=== PATIENT | female | born 1935 | race Caucasian/White ===

== ENCOUNTER 2016-02-19 00:48 | Inpatient (IN) | payer MEDICARE, MEDICAID ==
[~2016-02-19] VITALS: Ht 170.1 cm; Wt 83.6 kg
[2016-02-19] VITALS (9 sets, daily range): BP systolic 97–156; BP diastolic 50–84
--- NOTE | ~2016-02-19 | PR ---
[place], [place] PROGRESS NOTE NAME: JOHN ZHANG [facility] #: [id number] UNIT #: [id number] ROOM: [facility] DOCTOR: REYES BABIN MD,MICHELLE BIRTHDATE: [birth year] DOS: 02/22/2016 PULMONARY CRITICAL CARE EVALUATION AND MANAGEMENT HISTORY OF PRESENT ILLNESS: The patient has been noted comfortable at the present time, was noted without any distress. The patient was attempted on CPAP mode of mechanical ventilation yesterday but did not tolerate. She was switched back to assist control mode of mechanical ventilation. Arterial blood gases was also noted significant increased CO2 retention and hypercapnia. Currently, the patient has been getting IV Diprivan for the patient, sedated and remains on assist control mode of mechanical ventilation. There were no hemodynamic or respiratory complications noted as well. PHYSICAL EXAMINATION: VITAL SIGNS: For the patient which has been recorded shows the temperature of the patient noted as normal. The respiratory rate of the patient recorded as 12, heart rate 78, the blood pressure 152/68. The intake for this patient was recorded as intake of 3700 mL, output 1350 mL. Pulse oxygen saturation of the patient was recorded as 99%, 40% oxygen. HEENT: The patient remained orally intubated. NECK: Supple. HEAD: Atraumatic. CARDIOVASCULAR SYSTEM: S1, S2 audible. LUNGS: Was noted with moderate decreased breath sounds in the lungs bilaterally. ABDOMEN: Was noted as soft, nontender. Bowel sounds are present. EXTREMITIES: Showed no edema, clubbing, or cyanosis. LABORATORY DATA: Labs on the patient, endotracheal aspirate showed normal anupama isolation. Arterial blood gas assist control mode this morning, pH of 7.37, pCO2 46, pO2 125 with 40% oxygen. Arterial blood gas just on CPAP trial, pH of 7.26, pCO2 64, pO2 98.0. The chest x-ray of the patient that was done for the patient yesterday for the patient was noted without any acute abnormalities. CMP today, BUN 36, creatinine 1.20, glucose 129, sodium 148. Albumin 2.3. IMPRESSION: 1. The patient with persistent acute hypercapnic and hypoxic respiratory failure. 2. Acute aspiration pneumonia of the left lower lobe. 3. Mild acute kidney injury as well. 4. Metabolic alkalosis secondary to hypercarbia. 5. Moderate protein calorie malnutritional status. PLAN OF TREATMENT: Discontinuation of the Diprivan completely. Use of the Haldol p.r.n. 5 mg every 4 hours for any agitation. Resuming the mechanical ventilation with the trial of a CPAP of 5, pressure support of 10 for a couple of hours. If tolerates, his arterial blood gases will be done for the assessment of possibility of consideration of liberation of mechanical ventilator. In the meantime, continue to maximize other medical management therapy, plan of care, usual care. Supportive plan of management. [facility] [place], [place] PROGRESS NOTE NAME: JOHN ZHANG UNIT #: [id number] ROOM: [facility] DOCTOR: REYES BABIN MD,MICHELLE BIRTHDATE: [birth year] nutritional support for the patient has been provided and the patient has been tolerating current level of feeding at 60 mL of Pulmocare per hour. Continue other ventilator bundle management. Total time of pulmonary critical care evaluation and management was 35 minutes. MICHELLE CHAMBERS MD CM:PNANDRZEJ [id number] MICHELLE BABIN MD 02/23/16 0533 interface
--- NOTE | ~2016-02-19 | PR ---
[place], [place] PROGRESS NOTE NAME: JOHN ZHANG [facility] #: [id number] UNIT #: [id number] ROOM: [facility] DOCTOR: REYES BABIN MD,MICHELLE BIRTHDATE: [birth year] DOS: 02/24/2016 PULMONARY CRITICAL CARE EVALUATION AND MANAGEMENT SUBJECTIVE: The patient was seen and examined on 02/24/2016. She has been continued mechanical ventilator. The patient has been failing the trials of the weaning in the last couple of days. She has been continued mechanical ventilation, assist-controlled mode of mechanical ventilation. The Diprivan use has been discontinued. She has been getting intravenous Haldol p.r.n. use. She has not been noted with any hemodynamic instability at the present time. She does open her eyes and noted severe hard of hearing. OBJECTIVE: VITAL SIGNS: Shows a normal temperature, respiratory rate 22-17, heart rate 83, blood pressure 146/64. Intake is 3600 mL, output 1075 mL. Pulse oxygen saturation on 30% oxygen 96% saturation recorded. HEENT: No new change. NECK: Supple. CARDIOVASCULAR: S1, S2 is audible. LUNGS: The patient noted moderate decreased breath sounds for the patient. ABDOMEN: Soft, flat, nontender, bowel sounds present. EXTREMITIES: Show no edema, clubbing or cyanosis. LABORATORY DATA: BMP this morning, glucose 143, BUN 40, creatinine was normal. Remaining labs were normal. CBC of the patient this morning, WBC count 7.4, hemoglobin 11.2, hematocrit 36.1 and platelet count 131,000. IMPRESSION: 1. The patient with acute hypoxic and hypercapnic respiratory failure result of acute bacterial pneumonia from aspiration, which has been currently treated. 2. Muscle deconditioning and poor muscle mass and elderly status with difficulty weaning from the mechanical ventilator. 3. Mild azotemia for this patient was noted at present time. 4. Mild anemia for the patient remains stable as well. 5. History of essential hypertension. 6. Acute exacerbation of chronic obstructive pulmonary disease. 7. Azotemia. The patient also elaborates azotemia as a result of corticosteroids. PLAN OF TREATMENT: The patient has been started on CPAP of 5, pressure support of 10, initially, tidal volume noted about 200-250 mL with the respiratory rate 20-22. The patient pressure support was changed to 15 and the PEEP was increased to 8, resulting a tidal volume about 350-400 mL. The respiratory rate was recorded as 18. The current BiPAP setting will be continued if tolerated by the patient for the next couple of hours and arterial blood gases will be done. In the meantime, we continue antibiotics, bronchodilators, and oxygen supplementation. Continue nutritional support for the patient, which seemed to be well tolerated without any residual problems. Continue DVT prophylaxis, GI prophylaxis. Maximize nutritional status support. Consultation has been ordered for the patient's long-term acute care facility for further continued [place], [place] PROGRESS NOTE NAME: JOHN ZHANG UNIT #: [id number] ROOM: [facility] DOCTOR: REYES BABIN MD,MICHELLE BIRTHDATE: [birth year] medical management of ongoing acute medical illnesses. Total time pulmonary critical evaluation and management was 33 minutes. MICHELLE CHAMBERS MD CM:IZABEL [id number] MICHELLE BABIN MD 02/24/16 2313 interface
--- NOTE | ~2016-02-19 | CON ---
[place], [place] REPORT OF CONSULTATION NAME: JOHN ZHANG [facility] #: [id number] UNIT #: [id number] ROOM: [facility] DOCTOR: MICHELLE MARVIN MD BIRTHDATE: [birth year] DOS: 02/20/2016 PULMONARY CRITICAL CARE EVALUATION AND MANAGEMENT NOTE REQUESTED BY: Hospitalist services. REASON FOR CONSULTATION: For assessment of the progressive acute hypoxic respiratory failure requiring intubation and mechanical ventilation. HISTORY OF PRESENT ILLNESS: This is an 80-year-old female who has been admitted to the hospital [facility] the [facility]. She was brought to the hospital by the EMS as the patient has been experiencing increased shortness of breath. Shortness of breath for the patient has been noted gradually worsening. She had not been able to answer the question as the patient arrived in the Emergency Room assessment. The shortness of breath has been described by the nursing staff which occurred for this patient in the morning as per nursing staff. The patient has been admitted to Intensive Care Unit. She has been treated for further medical management. The patient developed progressive acute hypercapnic respiratory failure with further change in mental status and decreased responsiveness. She has been intubated, started on mechanical ventilation for this patient. The patient has been currently receiving mechanical ventilation at the time of the assessment. Sedation has been continued for the patient in the form of Diprivan. She has been noted comfortable without any distress at the time of the assessment. Endotracheal aspirate and vazquez cultures have been ordered for this patient and sent to the laboratory already. She has not been able to give me any history. All the history essentially was obtained for this patient from review of the current documentation, medical records by the physicians and the nursing staff. REVIEW OF SYSTEMS: Review of systems cannot be completed because of the patient's intubation and mechanical ventilatory status. PAST MEDICAL HISTORY: 1. The patient was noted with history of generalized anxiety disorder. 2. History of chronic dementia. 3. History of essential hypertension. 4. Hyperlipidemia. 5. Chronic kidney disease stage 3. 6. History of chronic obstructive pulmonary disease. PAST SURGICAL HISTORY: Described as history of hernia repair, the details were unknown. SOCIAL HISTORY: The patient was noted with past history of tobacco use, unknown quantity or duration at the present time. She has not been reported any history of past alcohol or any illicit drug use. FAMILY HISTORY: Father at the age of 7070 years old from complications of heart problem, coronary artery disease. Mother at the age of 80 plus years old from complications of coronary artery disease as well. [place], [place] REPORT OF CONSULTATION [facility] [id number] UNIT #: [id number] ROOM: [facility] DOCTOR: REYES BABIN MD,MICHELLE BIRTHDATE: [birth year] MEDICATIONS: Medications which has been listed for this patient at the time of admission from the [facility] were recorded as use of Tylenol p.r.n., Norvasc, aspirin 325 mg, Lipitor, Symbicort HFA inhaler, Coreg, vitamin D3, Flonase, Tussin-DM p.r.n., DuoNeb q.6 hours p.r.n. for wheezing, Claritin, lorazepam, prednisone 10 mg daily and Seroquel. DRUG ALLERGIES: REPORTED ALLERGIES TO LIPITOR, NAMENDA, VERSED, PROCARDIA AND VIOXX. PHYSICAL EXAMINATION: GENERAL: An 80-year-old elderly female, currently intubated, on mechanical ventilator. The patient was noted without any distress. Height of 5 feet 7 inches, weight of 184 pounds, BMI 28.8. VITAL SIGNS: Recorded as a normal temperature, respiratory rate of the patient recorded at 18-20, heart rate of 75-83, blood pressure 150/75-152/73. Pulse oxygen saturation was recorded as 98% on current mechanical ventilation. HEENT: Head was atraumatic. Eyes are nonicterus. The patient orally intubated, orogastric tube is in place. NECK: Supple. CARDIOVASCULAR: S1, S2 is audible. LUNGS: Noted generally with decreased breath sounds with expiratory wheezing. Scattered crackles of the lungs were present. ABDOMEN: Soft, flat, nontender. Bowel sounds present. EXTREMITIES: Shows no edema, clubbing or cyanosis. SKIN: Showed no lesions or rashes. MUSCULOSKELETAL: No gross deformities. LABORATORY DATA: On admission, CBC on 02/19/2016 for this patient was noted as normal CBC. BMP of the patient on 02/15/2016, glucose 117, BUN normal, creatinine was normal. CO2 of 34. Troponin was normal. Chest x-ray of the patient which was done on admission on 02/19/2016 in the Emergency Room, one view was taken, it shows small patchy infiltration noted in the left lower lung without any other acute abnormalities, finding of congestive heart failure, gross consolidation, mass lesion or with both nodules. The lactic acid repeated for the patient noted as normal. CBC of the patient which was repeated again was noted normal yesterday in the hospital. The BMP repeated again for the patient yesterday shows glucose of 134, BUN normal, creatinine was normal. CBC this morning shows normal CBC and WBCs. The CMP of the patient which was noted on 02/20/2016 shows BUN of 27, creatinine 1.28, glucose 179, CO2 of 39. Arterial blood gas of the patient on 100% nonrebreather mask, pH of 7.14, pCO2 of 90.6, pO2 of 352 for this patient noted prior to intubation and mechanical ventilation. Second arterial blood gas on 70% oxygen with the initiation of mechanical ventilation, pH of 7.27, pCO2 of 60.5, pO2 of 322 with PEEP of 5, tidal volume 650 mL. Arterial blood gas another was repeated 2 hours later, pH of 7.41, pCO2 of 44, pO2 of 174 with the oxygen decreased at that time to 50%. Endotracheal aspirate Gram stain was noted with many white blood cells with few epithelial cells, rare gram-positive cocci in pairs. Chest x-ray of the patient that was done on 02/20/2016, repeated. The patient was noted with endotracheal tube was noted in appropriate position. Small infiltration of the patient was [place], [place] REPORT OF CONSULTATION [facility] [id number] UNIT #: [id number] ROOM: [facility] DOCTOR: REYES BABIN MD,MICHELLE BIRTHDATE: [birth year] still noted in the left lower lobe. IMPRESSION: 1. The patient has been currently admitted to the hospital with progressive acute hypercapnic and severe hypoxemic respiratory failure, result of acute exacerbation of chronic obstructive pulmonary disease. 2. Small acute aspiration pneumonia in the left lower lobe was also suspected as a patchy infiltration. 3. Change in mental status. 4. History of chronic dementia. 5. Previous history of nicotine abuse, which was not noted active at the present time. 6. Suspected protein-calorie malnutrition at least moderate in severity as well. 7. Metabolic alkalosis secondary to hypercarbia. 8. Other several medical conditions as reported in the past history component. PLAN OF TREATMENT: Ventilator bundle management has been initiated. The patient will be continued on IV Versed p.r.n. use and continue use of the IV Diprivan. Feeding has been started with Pulmocare at 60 mL an hour, initial dose of 20 mL. Bronchodilator will be given every 4 hours. The antibiotics for this patient will be used by the patient empirically with reduction of antibiotic spectrum based on the culture results. Vazquez cultures have been obtained from the patient including blood cultures, urine culture, and the endotracheal aspirate. Other supportive plan of therapy has been continued. Feeding will be started for the patient today. DVT prophylaxis for this patient will be continued. Other usual care and treatment, therapy plan and management. Supportive plan of care. Solu-Medrol for the patient for the management of acute exacerbation of COPD. Further treatment changes will be done based on the progression of the illness. Aspiration pneumonia will continued to be managed with current antibiotics for this patient and the changes to be made for this patient after the available of new culture results in the next 48 hours. Total time for pulmonary critical care evaluation and management was 38 minutes. MICHELLE CHAMBERS MD CM:CONSTR:REPORT OF CONSULTATION 1527 03/04/16 0948 interface
--- NOTE | ~2016-02-19 | PR ---
[place], [place] PROGRESS NOTE NAME: JOHN ZHANG [facility] #: [id number] UNIT #: [id number] ROOM: [facility] DOCTOR: REYES BABIN MD,MICHELLE BIRTHDATE: [birth year] DOS: 02/21/2016 PULMONARY CRITICAL CARE EVALUATION AND MANAGEMENT SUBJECTIVE: The patient remains in Intensive Care Unit with mechanical ventilation continued. Sedation has been continued for the patient with IV Diprivan. With sedation holiday, the patient has been noted to opening her eyes but has dementia, may not follow the vocal commands appropriately. This morning as the patient was seen, she had been re-sedated as well with IV Diprivan. The patient has not been noted with any acute hemodynamic instability or respiratory complications, remains on assist control mode of mechanical ventilation, tolerating the feeding 50 mL an hour of Pulmocare in the last 24 hours. OBJECTIVE: VITAL SIGNS: Showed the temperature noted 100.2 degree Fahrenheit normal temperature, respiratory rate 16-12, heart rate of 91-87, blood pressure 114/54 to 158/71. Intake is 1300 mL/ 1200 mL. The pulse oxygen saturation of the patient recorded 97% on the mechanical ventilator. HEENT: Examination shows head was atraumatic. Eyes nonicterus. NECK: Supple. The patient remains intubated. Gastric tube is in place. CARDIOVASCULAR: S1, S2 audible. LUNGS: The patient was noted with moderate degree of breath sounds in the lungs bilaterally. ABDOMEN: Soft, nontender. Bowel sounds are present. EXTREMITIES: The extremities showed no edema, clubbing or cyanosis. LABORATORY DATA: Arterial blood gas on assist control mode on mechanical ventilation, pH is 7.41, pCO2 of 43, pO2 of 83.1 on 30% oxygen. CMP of the patient of 02/21/2016, this morning, BUN 32, creatinine 1.51, glucose 140, potassium normal, sodium 145. Total protein of 5.6, albumin of 2.6, prealbumin was 15. AST, ALT was normal. CBC this morning, normal WBC count, hemoglobin 10.8, hematocrit 33.4, platelet count was normal. Chest x-ray which was done this morning, endotracheal tube was noticed 6 cm above the mala[place] level. There was no pulmonary infiltration noted. There were no pleural effusions. IMPRESSION: 1. Acute hypercapnic and hypoxic respiratory failure. 2. History of chronic dementia. 3. Somewhat high-riding endotracheal tube. 4. The patient with history of general anxiety disorder. 5. Acute exacerbation of chronic obstructive pulmonary disease as well. 6. Small left lower lobe pneumonia with aspiration. 7. Moderate protein-calorie malnutrition status. PLAN OF TREATMENT: Discontinue the IV propofol. The assessment is started once the patient noted awake. Started the patient CPAP of 5 with pressure support of 10 couple of hours and arterial blood gas should be obtained afterwards. The arterial blood gas noted with adequate ventilatory status. The patient with stable medical status and hemodynamic. The patient might be considered for liberation of mechanical ventilation. Continue current antibiotics. The [place], [place] PROGRESS NOTE NAME: ADAN ZHANGKatie Camarillo UNIT #: [id number] ROOM: [facility] DOCTOR: MICHELLE MARVIN MD BIRTHDATE: [birth year] antibiotic Bactrim to be decreased for the patient based on the final cultures of the blood and endotracheal aspiration. Usual care. Monitor chest x-ray periodical. Usual care and other supportive therapy and plan of management and other treatment plan. Usual care. All other supportive plan of therapy and other care. Total time for pulmonary critical care evaluation and management was 37 minutes. MICHELLE CHAMBERS MD CM:IZABEL [id number] MICHELLE BABIN MD 02/24/16 0359 interface
--- NOTE | ~2016-02-19 | PR ---
[place], [place] PROGRESS NOTE NAME: JOHN ZHANG [facility] #: [id number] UNIT #: [id number] ROOM: [facility] DOCTOR: REYES BABIN MD,MICHELLE BIRTHDATE: [birth year] DOS: 02/23/2016 SUBJECTIVE: She remains on mechanical ventilator. The Diprivan has been discontinued. She was getting intravenous Haldol p.r.n. for any agitation and behavior while on the mechanical ventilator. She was started on CPAP of 5, pressure support of 10 this morning as well after about 40-45 minutes. The patient was noted with significant hypoxia with respiratory distress and was switched back to assist controlled mechanical ventilation. She was noted severe hard of hearing as well. Low-grade fever was noted. Feeding was continued, tolerated. There was no increase. There was no abnormal hemodynamic instability noted. OBJECTIVE: VITAL SIGNS: At this time, temperature 99.6 degrees Fahrenheit to normal temperature, respiratory rate 12-13, heart rate 72-73, blood pressure 154/68-138/80. Intake is 3000, output 2000 mL approximately recorded. Pulse oxygen saturation 35% on mechanical ventilator assist control mode was 98% saturation. HEENT: Examination shows head was atraumatic. Eyes nonicterus. NECK: Supple. CARDIOVASCULAR: S1, S2 audible. LUNGS: Noted without any wheezing or crackles. Breaths are noted essentially moderately decreased bilaterally. ABDOMEN: Soft, nontender. EXTREMITIES: Shows mild edema of the upper and the lower extremities. LABORATORY DATA: The patient's CBC today, hemoglobin 11.4, hematocrit 35.7, WBC count and platelet count were normal. CMP of the patient this morning was noted with 36, BUN and creatinine normal, sodium 149, potassium 5.2, albumin 2.4. The chest x-ray does not show any acute pulmonary infiltration or other new abnormalities. IMPRESSION: 1. The patient with acute hypercapnic and hypoxic respiratory failure. 2. Acute bacterial pneumonia for this patient was also noted, currently treated with antibiotics. 3. Moderate protein-calorie malnutrition. 4. Muscle deconditioning. 5. Difficulty weaning from the mechanical ventilator. Arterial blood gases controlled mode, which was done this morning showed pH of 7.39, pCO2 of 47, pO2 of 84.8. She did not tolerate the CPAP trial consecutively for the past 2 days. PLAN OF TREATMENT: Continue current sedation protocol. Continue weaning attempts with CPAP as tolerated. Continue maximum nutrition support. The antibiotic spectrum could be changed based on the current culture results. Supportive therapy, plan of management as in progress to be continued. Continue ventilator bundle management. Discontinue the IV Zosyn and vancomycin since there has not been isolation of any organism which required use of the current antibiotic. Levaquin should suffice the patient for the management of current acute bacterial pneumonia. Usual care. All other supportive plan of management [place], [place] PROGRESS NOTE [facility]: [id number] UNIT #: [id number] ROOM: [facility] DOCTOR: MICHELLE MARVIN MD BIRTHDATE: [birth year] and treatments. MICHELLE CHAMBERS MD CM:PNTRANS [id number] MICHELLE BABIN MD 02/24/16 0711 interface
[~2016-02-19 00:48] MED LIST: ACETAMINOPHEN325 M2 PO; ARICEPT10 M1 PO; ARICEPT5 M1 PO; ARTHRITIS PAIN650 MG PO; ASPIRIN BUFFER325 MG PO; ATIVAN0.5 MG PO; CALCIUM CARB500 MG PO; CALCIUM CARBON500 M1 PO; CARVEDILOL12.5 MG PO; CLARITIN10 MG PO; COREG6.25 MG PO; CRESTOR10 M1 PO; DELTA D3400 UNIT PO; DOXYCYCLINE100 MG PO; DULCOLAX10 M1 RC; DUONEB 3 MG/3 ML3 M1 INH; FLONASE ALLERG9.9 ML NAS; FLOVENT HFA10.6 GM IH; GUAIFENESIN600 MG PO; HEPARIN SO5000 UNIT1 SQ; HYDROCHLOROTH12.5 M3 PO; HYDROXYZINE HCL25 M1 PO; LEVAQUIN750 M1 PO; LINEZOLID600 MG PO; LIPITOR20 MG PO; MUCINEX1200 M1 PO; NITROGLYCERIN0.4 MG SL; NORVASC2.5 MG PO; OXYCODONE5 M1 PO; PENTOXIFYL XR400 MG PO; PREDNISONE10 MG PO; RISPERDAL0.25 MG PO; SEROQUEL25 MG PO; SINGULAIR10 M1 PO; SYMBICORT1 AE1 INH; THEREMS1 TAB PO; TUSSIN DM 10 M118 M1 PO; TUSSIN100 MG/51 PO; TYLENOL325 M1 PO; VANCOMYCIN HCL1 GM IV; VITAMIN C500 M4 PO; VITAMIN D3400 UNIT PO; ZETIA10 MG PO
[2016-02-19 01:07] LABS: BASO # 0.1 10*3/uL (0.0-0.1); BASO % 0.7 % (0.0-1.0); EOS # 0.1 10*3/uL (0.0-0.4); EOS % 1.5 % (1.0-4.0); HEMATOCRIT 39.4 % (37.0-47.0); HEMOGLOBIN 12.4 g/dl (12.0-16.0); LYMPH # 0.6 10*3/uL (1.3-4.4); LYMPH % 7.2 % (27.0-41.0); MEAN CORPUSCULAR HGB 30.5 pg (27.0-31.0); MEAN CORPUSCULAR HGB CONC 31.5 g/dl (33.0-37.0); MEAN PLATELET VOLUME 10.4 fl (9.6-12.3); MONO % 11.1 % (3.0-9.0); NEUT # 6.8 10*3/uL (2.3-7.9); NEUT % 79.3 % (47.0-73.0); PLATELET COUNT AUTOMATED 161 10*3/uL (130-400); RED BLOOD COUNT 4.06 10*6/uL (4.10-5.10); RED CELL DISTRI WIDTH 13.9 % (0-14.5); WHITE BLOOD COUNT 8.6 10*3/uL (4.8-10.8)
[2016-02-19 01:19] LABS: POTASSIUM 4.2 mmol/L (3.5-5.1)
[2016-02-19] MEDS ORDERED: ASPIRIN325 MG PO (03:29)
[2016-02-19] MEDS ORDERED: CLARITIN10 MG PO (03:34)
[2016-02-19 06:50] LABS: BASO # 0.1 10*3/uL (0.0-0.1); BASO % 0.9 % (0.0-1.0); EOS % 0.3 % (1.0-4.0); LYMPH # 0.4 10*3/uL (1.3-4.4); LYMPH % 6.9 % (27.0-41.0); MEAN CORPUSCULAR HGB 30.3 pg (27.0-31.0); MEAN CORPUSCULAR HGB CONC 31.6 g/dl (33.0-37.0); MEAN PLATELET VOLUME 10.3 fl (9.6-12.3); MONO # 0.1 10*3/uL (0.1-1.0); MONO % 1.9 % (3.0-9.0); NEUT # 5.2 10*3/uL (2.3-7.9); NEUT % 89.7 % (47.0-73.0); PLATELET COUNT AUTOMATED 147 10*3/uL (130-400); RED BLOOD COUNT 3.96 10*6/uL (4.10-5.10); RED CELL DISTRI WIDTH 13.6 % (0-14.5); WHITE BLOOD COUNT 5.8 10*3/uL (4.8-10.8)
[2016-02-19 07:33] LABS: BUN 19 mg/dl (7-24); CARBON DIOXIDE 31 mmol/L (21-32); CHLORIDE 106 mmol/L (98-107); CHOLESTEROL 146 mg/dL (<200); EST GLOM FILT AFRICAN AMERICAN > 60 ml/min; FREE T4 1.32 ng/dl (0.76-1.46); GLUCOSE 134 mg/dL (65-99); HDL CHOLESTEROL 65 mg/dl (40-60); LDL CHOLESTEROL 71 mg/dL (9-159); MAGNESIUM 2.3 mg/dL (1.5-2.1); POTASSIUM 4.5 mmol/L (3.5-5.1); SODIUM 144 mmol/L (136-145); THYROID STIM HORMONE (HS) 0.771 uIU/ml (0.358-4.75); TRIGLYCERIDES 52 mg/dl (<150); VLDL CHOLESTEROL 10 mg/dL (6-40)
[2016-02-19 07:43] LABS: HEMOGLOBIN A1c 5.6 % (4.8-5.6)
[2016-02-19 09:12] LABS: FOLIC ACID 20.32 ng/mL (>5.38)
[2016-02-20] VITALS (12 sets, daily range): BP systolic 131–167; BP diastolic 53–92
[2016-02-20 02:51] LABS: BASO % 0.2 % (0.0-1.0); HEMATOCRIT 39.5 % (37.0-47.0); HEMOGLOBIN 12.3 g/dl (12.0-16.0); IG # 0.1 10*3/uL (0.0-0.1); LYMPH # 0.6 10*3/uL (1.3-4.4); LYMPH % 5.6 % (27.0-41.0); MEAN CORPUSCULAR HGB CONC 31.1 g/dl (33.0-37.0); MEAN PLATELET VOLUME 10.5 fl (9.6-12.3); MONO # 0.6 10*3/uL (0.1-1.0); NEUT # 9.4 10*3/uL (2.3-7.9); NEUT % 87.7 % (47.0-73.0); PLATELET COUNT AUTOMATED 186 10*3/uL (130-400); RED BLOOD COUNT 3.97 10*6/uL (4.10-5.10); RED CELL DISTRI WIDTH 13.8 % (0-14.5); WHITE BLOOD COUNT 10.7 10*3/uL (4.8-10.8)
[2016-02-20 02:52] LABS: MEAN CELL VOLUME 99.5 fl (81.0-99.0)
[2016-02-20 03:08] LABS: ALBUMIN 3.3 gm/dl (3.1-4.5); BILIRUBIN, TOTAL 0.5 mg/dl (0.2-1.0); POTASSIUM 4.5 mmol/L (3.5-5.1); TOTAL PROTEIN 6.8 gm/dL (6.4-8.2)
[2016-02-20 03:27] LABS: ABG BASE EXCESS -1.1 mmol/L (-2.0-2.0); ABG CO2 CONTENT 32.9 mmol/L (23-27); ABG HCO3 30.1 mmol/l (22-26); ABG TEMPERATURE 98.2 F (98.0-99.0)
[2016-02-20 03:31] LABS: ARTERIAL BLOOD GAS PH 7.146 (7.35-7.45)
[2016-02-20 06:14] LABS: ABG BASE EXCESS -0.3 mmol/L (-2.0-2.0); ABG CO2 CONTENT 28.8 mmol/L (23-27); ABG HCO3 26.9 mmol/l (22-26); ABG TEMPERATURE 98.3 F (98.0-99.0); ARTERIAL BLOOD GAS PH 7.27 (7.35-7.45)
[2016-02-20 08:45] LABS: ABG BASE EXCESS 3.1 mmol/L (-2.0-2.0); ABG CO2 CONTENT 29.1 mmol/L (23-27); ABG HCO3 27.8 mmol/l (22-26); ABG TEMPERATURE 97.8 F (98.0-99.0); ARTERIAL BLOOD GAS PH 7.41 (7.35-7.45)
[2016-02-20 15:30] LABS: BILIRUBIN NEGATIVE (NEGATIVE); BLOOD 1+ (NEGATIVE); CLARITY CLEAR (CLEAR); COLOR YELLOW (YELLOW); GLUCOSE NEGATIVE (NEGATIVE); KETONE NEGATIVE (NEGATIVE); LEUKO ESTERASE NEGATIVE (NEGATIVE); NITRITE NEGATIVE (NEGATIVE); PROTEIN NEGATIVE (NEGATIVE); SPECIFIC GRAVITY 1.015 (1.005-1.030); UROBILINOGEN 0.2 E.U./dl (0.2-1.0)
[2016-02-21] VITALS (12 sets, daily range): BP systolic 114–161; BP diastolic 54–83
[2016-02-21 04:43] LABS: ABG BASE EXCESS 3.4 mmol/L (-2.0-2.0); ABG CO2 CONTENT 29.3 mmol/L (23-27); ABG HCO3 27.9 mmol/l (22-26); ARTERIAL BLOOD GAS PH 7.419 (7.35-7.45); ARTERIAL BLOOD GAS PO2 83.1 mmHg (80-90)
[2016-02-21 05:44] LABS: ALBUMIN 2.6 gm/dl (3.1-4.5); BILIRUBIN, TOTAL 0.3 mg/dl (0.2-1.0); MAGNESIUM 2.2 mg/dL (1.5-2.1); PHOSPHOROUS 3.2 mg/dL (2.5-4.9); POTASSIUM 3.9 mmol/L (3.5-5.1); TOTAL PROTEIN 5.6 gm/dL (6.4-8.2); VANCOMYCIN TROUGH 16.7 ug/mL (10-20)
[2016-02-21 06:23] LABS: HEMOGLOBIN 10.8 g/dl (12.0-16.0); LYMPH # 0.3 10*3/uL (1.3-4.4); LYMPH % 4.9 % (27.0-41.0); MEAN CORPUSCULAR HGB 30.9 pg (27.0-31.0); MEAN CORPUSCULAR HGB CONC 32.3 g/dl (33.0-37.0); MEAN PLATELET VOLUME 10.9 fl (9.6-12.3); MONO # 0.5 10*3/uL (0.1-1.0); MONO % 7.1 % (3.0-9.0); NEUT # 5.7 10*3/uL (2.3-7.9); NEUT % 87.7 % (47.0-73.0); PLATELET COUNT AUTOMATED 157 10*3/uL (130-400); RED CELL DISTRI WIDTH 13.8 % (0-14.5); WHITE BLOOD COUNT 6.5 10*3/uL (4.8-10.8)
[2016-02-21 06:27] LABS: HEMATOCRIT 33.4 % (37.0-47.0); MEAN CELL VOLUME 95.4 fl (81.0-99.0)
[2016-02-21 13:49] LABS: ABG BASE EXCESS 0.8 mmol/L (-2.0-2.0); ABG CO2 CONTENT 30.4 mmol/L (23-27); ABG HCO3 28.4 mmol/l (22-26); ARTERIAL BLOOD GAS PH 7.269 (7.35-7.45)
[2016-02-22] VITALS (11 sets, daily range): BP systolic 103–180; BP diastolic 56–100
[2016-02-22 05:06] LABS: ABG BASE EXCESS 1.8 mmol/L (-2.0-2.0); ABG CO2 CONTENT 28.4 mmol/L (23-27); ABG TEMPERATURE 97.9 F (98.0-99.0); ARTERIAL BLOOD GAS PH 7.379 (7.35-7.45)
[2016-02-22 05:55] LABS: HEMOGLOBIN 10.3 g/dl (12.0-16.0); LYMPH # 0.4 10*3/uL (1.3-4.4); LYMPH % 7.1 % (27.0-41.0); MEAN CELL VOLUME 96.8 fl (81.0-99.0); MEAN CORPUSCULAR HGB 30.2 pg (27.0-31.0); MEAN CORPUSCULAR HGB CONC 31.2 g/dl (33.0-37.0); MONO # 0.6 10*3/uL (0.1-1.0); MONO % 10.4 % (3.0-9.0); NEUT # 4.4 10*3/uL (2.3-7.9); NEUT % 81.9 % (47.0-73.0); PLATELET COUNT AUTOMATED 138 10*3/uL (130-400); RED BLOOD COUNT 3.41 10*6/uL (4.10-5.10); RED CELL DISTRI WIDTH 13.9 % (0-14.5); WHITE BLOOD COUNT 5.4 10*3/uL (4.8-10.8)
[2016-02-22 06:27] LABS: ALBUMIN 2.3 gm/dl (3.1-4.5); BILIRUBIN, TOTAL 0.2 mg/dl (0.2-1.0); TOTAL PROTEIN 4.9 gm/dL (6.4-8.2)
[2016-02-22 15:03] LABS: ABG BASE EXCESS 1.5 mmol/L (-2.0-2.0); ABG CO2 CONTENT 30.7 mmol/L (23-27); ABG HCO3 28.8 mmol/l (22-26); ABG TEMPERATURE 98.2 F (98.0-99.0); ARTERIAL BLOOD GAS PH 7.294 (7.35-7.45); ARTERIAL BLOOD GAS PO2 79.4 mmHg (80-90)
[2016-02-23] VITALS: BP 138/70
[2016-02-23 04:00] VITALS: BP 154/68
[2016-02-23 05:13] LABS: ABG BASE EXCESS 3.1 mmol/L (-2.0-2.0); ABG CO2 CONTENT 29.6 mmol/L (23-27); ABG HCO3 28.2 mmol/l (22-26); ABG TEMPERATURE 98.5 F (98.0-99.0); ARTERIAL BLOOD GAS PH 7.392 (7.35-7.45); ARTERIAL BLOOD GAS PO2 84.8 mmHg (80-90)
[2016-02-23 05:58] LABS: HEMATOCRIT 35.7 % (37.0-47.0); HEMOGLOBIN 11.4 g/dl (12.0-16.0); LYMPH # 0.7 10*3/uL (1.3-4.4); LYMPH % 10.5 % (27.0-41.0); MEAN CORPUSCULAR HGB CONC 31.9 g/dl (33.0-37.0); MONO # 0.6 10*3/uL (0.1-1.0); MONO % 9.2 % (3.0-9.0); NEUT # 5.1 10*3/uL (2.3-7.9); NEUT % 79.7 % (47.0-73.0); PLATELET COUNT AUTOMATED 137 10*3/uL (130-400); RED BLOOD COUNT 3.68 10*6/uL (4.10-5.10); WHITE BLOOD COUNT 6.4 10*3/uL (4.8-10.8)
[2016-02-23 06:23] LABS: ALBUMIN 2.4 gm/dl (3.1-4.5); ALKALINE PHOSPHATASE 58 U/L (45-117); BILIRUBIN, TOTAL 0.3 mg/dl (0.2-1.0); BUN 36 mg/dl (7-24); CARBON DIOXIDE 29 mmol/L (21-32); CHLORIDE 110 mmol/L (98-107); EST GLOM FILT AFRICAN AMERICAN > 60 ml/min; GLUCOSE 99 mg/dL (65-99); POTASSIUM 4.1 mmol/L (3.5-5.1); SGOT/AST 25 IU/L (3-35); SGPT/ALT 18 U/L (12-78); SODIUM 149 mmol/L (136-145); TOTAL PROTEIN 5.2 gm/dL (6.4-8.2)
[2016-02-23 08:00] VITALS: BP 138/80
[2016-02-23 12:00] VITALS: BP 102/60
[2016-02-23 16:00] VITALS: BP 118/60
[2016-02-23 20:00] VITALS: BP 150/78
[2016-02-24] VITALS: BP 154/64
[2016-02-24 04:00] VITALS: BP 140/72
[2016-02-24 06:03] LABS: BASO % 0.1 % (0.0-1.0); HEMATOCRIT 36.1 % (37.0-47.0); HEMOGLOBIN 11.2 g/dl (12.0-16.0); IG # 0.1 10*3/uL (0.0-0.1); LYMPH # 0.5 10*3/uL (1.3-4.4); LYMPH % 7.3 % (27.0-41.0); MEAN CORPUSCULAR HGB 30.1 pg (27.0-31.0); MONO # 0.5 10*3/uL (0.1-1.0); MONO % 6.9 % (3.0-9.0); NEUT # 6.2 10*3/uL (2.3-7.9); NEUT % 84.2 % (47.0-73.0); PLATELET COUNT AUTOMATED 131 10*3/uL (130-400); RED BLOOD COUNT 3.72 10*6/uL (4.10-5.10); RED CELL DISTRI WIDTH 13.6 % (0-14.5); WHITE BLOOD COUNT 7.4 10*3/uL (4.8-10.8)
[2016-02-24 06:40] LABS: BUN 40 mg/dl (7-24); CARBON DIOXIDE 30 mmol/L (21-32); CHLORIDE 106 mmol/L (98-107); EST GLOM FILT AFRICAN AMERICAN > 60 ml/min; GLUCOSE 143 mg/dL (65-99); MAGNESIUM 2.6 mg/dL (1.5-2.1); PHOSPHOROUS 3.3 mg/dL (2.5-4.9); POTASSIUM 4.3 mmol/L (3.5-5.1); SODIUM 144 mmol/L (136-145)
[2016-02-24 07:49] LABS: ABG BASE EXCESS 3.5 mmol/L (-2.0-2.0); ABG HCO3 28.6 mmol/l (22-26); ABG TEMPERATURE 98.3 F (98.0-99.0); ARTERIAL BLOOD GAS PH 7.397 (7.35-7.45)
[2016-02-24 08:00] VITALS: BP 146/64
[2016-02-24 11:40] LABS: ABG BASE EXCESS 3.7 mmol/L (-2.0-2.0); ABG CO2 CONTENT 30.7 mmol/L (23-27); ABG HCO3 29.1 mmol/l (22-26); ARTERIAL BLOOD GAS PH 7.378 (7.35-7.45); ARTERIAL BLOOD GAS PO2 76.4 mmHg (80-90)
[2016-02-24 12:00] VITALS: BP 160/60
[2016-02-24 16:00] VITALS: BP 156/60
== END 2016-02-24 19:00 | DRG 207 ==
LOC: ED 00:48 → 5E 02:54 → ICCU 02:54 → EDHOLD 02:54 → 5E 03:05 → ICCU 02-20 02:53
PROVIDERS: Emergency Medicine Emergency Medical Services; Family Medicine; Internal Medicine; Internal Medicine Critical Care Medicine
PROC: 5A1955Z Respiratory Ventilation, Greater than 96 Consecutive Hours (ICD-10-PCS; principal; 2016-02-19)
PROC: 0BH17EZ Insertion of Endotracheal Airway into Trachea, Via Natural or Artificial Opening (ICD-10-PCS; principal; 2016-02-19)
DX: J96.01 Acute respiratory failure with hypoxia (principal); J69.0 Pneumonitis due to inhalation of food and vomit; N17.9 Acute kidney failure, unspecified; E87.3 Alkalosis; I13.0 Hypertensive heart and chronic kidney disease with heart failure and stage 1 through stage 4 chronic kidney disease, or unspecified chronic kidney disease; I50.22 Chronic systolic (congestive) heart failure; J44.0 Chronic obstructive pulmonary disease with (acute) lower respiratory infection; J44.1 Chronic obstructive pulmonary disease with (acute) exacerbation; E44.0 Moderate protein-calorie malnutrition; J96.02 Acute respiratory failure with hypercapnia; J45.909 Unspecified asthma, uncomplicated; N18.3 Chronic kidney disease, stage 3 (moderate); F03.90 Unspecified dementia, unspecified severity, without behavioral disturbance, psychotic disturbance, mood disturbance, and anxiety; E78.5 Hyperlipidemia, unspecified; D64.9 Anemia, unspecified; F41.1 Generalized anxiety disorder; Z79.82 Long term (current) use of aspirin; Z79.51 Long term (current) use of inhaled steroids; Z79.899 Other long term (current) drug therapy; Z87.891 Personal history of nicotine dependence; Z98.890 Other specified postprocedural states; Z88.8 Allergy status to other drugs, medicaments and biological substances; Z91.040 Latex allergy status; Z82.49 Family history of ischemic heart disease and other diseases of the circulatory system

== ENCOUNTER 2016-05-19 07:32 | Inpatient (IN) | payer MEDICARE, MEDICAID ==
[~2016-05-19] VITALS: Ht 170.2 cm; Wt 74.6 kg
[2016-05-19] VITALS (7 sets, daily range): BP systolic 105–137; BP diastolic 50–66
--- NOTE | ~2016-05-19 | CON ---
[place], [place] REPORT OF CONSULTATION [id number] UNIT #: [id number] ROOM: 507 DOCTOR: SAMMI BRYAN MD BIRTHDATE: [birth year] DOS: 05/22/2016 PSYCHIATRIC CONSULT CHIEF COMPLAINT: What's that over there? Go get me that book. SUMMARY OF THE VISIT: The patient is an 80-year-old white female who is a resident of a local long-term care facility. She was brought in to [facility] due to altered mental status including extreme shortness of breath. The patient apparently always had shortness of breath and is on 3-4 liters of oxygen via nasal cannula while at the [facility]. When she presented to the Emergency Room, they found her to be increasingly hypoxic and very confused and disoriented. Since her admission to the medical floor, not only has she been confused and disoriented, but she has been episodically combative with staff and very labile. She was evaluated now to see if any intervention could decrease her mood lability and agitation. PAST MEDICAL HISTORY: Remarkable for asthma, congestive heart failure, chronic kidney disease stage 3, COPD, Alzheimer's dementia, hyperlipidemia, hypertension, normocytic anemia and protein calorie malnutrition. MENTAL STATUS: The patient is alert and oriented to self. She does seem to realize she is in the hospital, but does not know the time. Her responses are short, simple and at times totally nonsensical and she does not always respond to the question asked of her. At times, she drifted off and needed to be frequently redirected to answer questions. She is very confused and she processes slowly. Short term memory is exceedingly poor. DIAGNOSIS: Impulse control disorder, not otherwise specified and Alzheimer's dementia. PLAN: I will discontinue both the Risperdal and the Seroquel and the p.r.n. Xanax in lieu of Depakote 250 mg twice daily and 500 mg at bedtime. It is my hope that the Depakote would decrease her impulsivity and mood lability without necessarily having an antipsychotic on board. I will write for Ativan 1 mg p.o. or IM q. 4 hours as needed for agitation in case she requires some type of p.r.n. intervention and also start her on Exelon patch 4.6 mg daily to try to improve or maintain ADLs, behavior and cognition. Should she improve medically, but still exhibit psychiatric manifestations, she would be an appropriate candidate for transfer to the [facility]. [place], [place] REPORT OF CONSULTATION NAME: [facility] Z[facility]ANG [facility]quise [facility] [id number] UNIT #: [id number] ROOM: 50 DOCTOR: SAMMI BRYAN MD BIRTHDATE: [birth year] SAMMI BRYAN MD CM:CONSTR:REPORT OF CONSULTATION 0846 05/22/16 2208 interface
--- NOTE | ~2016-05-19 | PR ---
[place], [place] PROGRESS NOTE NAME: JOHN ZHANG [facility] #: [id number] UNIT #: [id number] ROOM: 507 DOCTOR: ÁNGEL BIRMINGHAM MD BIRTHDATE: [birth year] DOS: 05/20/2016 SUBJECTIVE: The patient was seen at her bedside today, 05/20/2016, for followup of her dyspnea and abnormal cardiac enzymes. She is an 80-year-old woman who was brought to [facility] on 05/19/2016 for dyspnea. She does have a history of dementia and is a poor historian. She tells me that she never had any chest pain. Initial laboratory studies showed an elevation in troponin. The initial level was 0.8 and serial levels did show a classic rise and fall pattern suggesting an acute myocardial infarction. The electrocardiogram did not show any ST elevations, however, and this was no non-ST elevation myocardial infarction. Peak troponin was 4.9 and is noted to be falling now. The patient's code status is full code; however, when I spoke to her sister who is her power of patent attorney. She told me that she did not want the patient to undergo any advanced cardiac evaluation or management strategies. We did do an echocardiogram on 05/19/2016. The left ventricle was normal in size with mild concentric left ventricular hypertrophy. Overall, systolic function was normal. There was Doppler evidence for stage 1 diastolic relaxation abnormalities. There was moderate aortic stenosis present with mild to moderate mitral insufficiency. PHYSICAL EXAMINATION: VITAL SIGNS: Today, her pulse is 88 and regular, blood pressure is 130/50. She is afebrile. She weighs 74.6 kilograms with a body mass index of 25.8. NECK: Supple. She has no jugular distention. Carotids are full. LUNGS: Respirations are unlabored. Her chest is clear to auscultation and percussion. HEART: Regular rhythm with a grade 2/6 systolic ejection murmur along the left sternal border. There are no diastolic murmurs. The second heart sound is well preserved. ABDOMEN: Soft. EXTREMITIES: Showed no edema. IMPRESSION: 1. Acute non-ST segment elevation myocardial infarction. Echocardiography does not show the location of the injury and overall left ventricular systolic function is normal. 2. History of chronic obstructive pulmonary disease. 3. History of hypertension. 4. Probable widespread vascular disease. The patient had a carotid endarterectomy in the past and has absent pedal pulses. 5. History of hypertension. 6. History of hyperlipidemia. 7. Dementia. 8. History of congestive heart failure and decreased ejection fraction. Current echo shows normal left ventricular systolic function. PLAN: We will continue to treat the patient conservatively. She will be managed with aspirin, statin, beta-blockers, and nitrates as well as [place], [place] PROGRESS NOTE NAME: JOHN ZHANG [facility] #: [id number] UNIT #: [id number] ROOM: [facility] DOCTOR: ÁNGEL BIRMINGHAM MD BIRTHDATE: [birth year] clopidogrel. I had discussed her situation with her sister who was power of patent attorney, and she agrees with this that conservative management is our best option. I thank the hospitalist group for asking our advice regarding her care. ÁNGEL BIRMINGHAM MD CM:PNTRANS [phone] ÁNGEL BIRMINGHAM MD 05/21/16 0328 interface
--- NOTE | ~2016-05-19 | EKG ---
[place], [place] ELECTROCARDIOGRAM REPORT [id number] UNIT #: [id number] ROOM: 507 DOCTOR: ÁNGEL BIRMINGHAM MD BIRTHDATE: [birth year] DOS: 05/19/2016 TIME: 08:01 a.m. FINDINGS: 1. Sinus rhythm at the rate of 93. 2. Low voltage in standard limb leads. 3. Nonspecific intraventricular conduction delay. 4. Probable old inferior wall myocardial infarction. 5. No acute ST changes. 6. Abnormal electrocardiogram. ÁNGEL BIRMINGHAM MD CM:EKGRPT:ELECTROCARDIOGRAM REPORT [phone] ÁNGEL BIRMINGHAM MD
--- NOTE | ~2016-05-19 | CON ---
[place], [place] REPORT OF CONSULTATION NAME: JOHN ZHANG [facility] #: [id number] UNIT #: [id number] ROOM: 507 DOCTOR: ÁNGEL BIRMINGHAM MD BIRTHDATE: [birth year] DOS: 05/19/2016 CARDIOLOGY CONSULTATION The patient was seen. REASON FOR CONSULTATION: Abnormal electrocardiogram and elevated cardiac biomarkers. HISTORY OF PRESENT ILLNESS: The patient is an 80-year-old woman who was brought to [facility] today 05/19/2016 for worsening dyspnea. The patient does have dementia and is a poor historian. When asked, she says that she feels better now then she did, but she cannot tell me how she felt badly. The medical records from the Emergency Room indicated that she had wheezing and dyspnea. The patient denied any chest pain. Her initial laboratory studies did show an elevation in troponin at 0.8. In addition, her electrocardiogram on admission showed evidence for an old inferior wall myocardial infarction, which was seen on a cardiogram dated 02/19/2016. In addition, however, she had T-wave inversions in the inferior leads, which were either more prominent or new when compared to the previous EKG. She was therefore admitted for management of dyspnea and for possible acute non-ST elevation myocardial infarction. PAST MEDICAL HISTORY: Obtained mostly from the patient's records. Her history includes, 1. COPD. 2. Hospitalization, 02/24/2016 with a left lower lobe pneumonia. 3. Dementia. 4. Chronic heart failure. 5. Echocardiogram, 04/30/2015 showed mild left ventricular dilation with mild global hypokinesis and an ejection fraction between 45% and 50%. The patient had mild left ventricular hypertrophy with moderate mitral insufficiency. She also had aortic sclerosis, but no stenosis. 6. Dementia. 7. Chronic kidney disease stage 3. 8. History of essential hypertension. 9. History of cigarette abuse in the past. 10. Anxiety. 11. Hyperlipidemia. 12. The patient has a right neck scar consistent with a right carotid endarterectomy. 13. The patient has a midline abdominal scar, but cannot tell me what surgery she had. REVIEW OF SYSTEMS: The patient denies all symptoms in a 10-system review. She did admit that she felt funny in her chest, but she states that it is better and could not tell me anything more than that. FAMILY HISTORY: Not available. [place], [place] REPORT OF CONSULTATION [id number] UNIT #: [id number] ROOM: 507 DOCTOR: ÁNGEL BIRMINGHAM MD BIRTHDATE: [birth year] SOCIAL HISTORY: The patient is a former smoker. She does not consume alcohol or cigarettes at this time. [facility]. MEDICATIONS: Prior to admission included albuterol by metered dose inhaler 2 puffs q.i.d., Symbicort 2 puffs b.i.d., Flonase nasal inhaler 2 sprays daily, acetaminophen p.r.n., alprazolam 0.25 q. 6 hours p.r.n., amlodipine 10 mg daily, aspirin 325 mg daily, atorvastatin 20 mg daily, carvedilol 6.25 mg b.i.d., vitamin D 400 units b.i.d., furosemide 80 mg p.o. daily, loratadine 10 mg daily, omeprazole 40 mg daily, Zofran 4 mg q. 6 hours p.r.n., potassium 20 mEq b.i.d., Seroquel 25 mg b.i.d. and NovoLog insulin subcutaneously b.i.d. by sliding scale. ALLERGIES: SHE LISTS ALLERGIES TO ATORVASTATIN, LATEX, , MIDAZOLAM, NIFEDIPINE AND ROFECOXIB (VIOXX). PHYSICAL EXAMINATION: GENERAL: The patient is an elderly white female who is awake and alert. She is oriented only to self. VITAL SIGNS: Pulse is 86 and regular, blood pressure is 110/62. She is afebrile and weighs 74.6 kilograms with a body mass index 25.8. HEENT: Head is normocephalic, atraumatic. Extraocular muscles are intact. Sclerae are clear. Pupils are equal, round and react to light. The oral mucosa is moist. Tongue is midline. NECK: Supple. She has a well-healed right carotid endarterectomy scar. The carotids are full without bruits. She had no neck or supraclavicular masses. No thyromegaly. Respirations are unlabored at rest. She does have expiratory prolongation and a few wheezes in the upper lungs anteriorly. Her posterior lungs are fairly clear. She had no rales. There was no presacral edema or chest wall tenderness. CARDIOVASCULAR: Her heart had a regular rhythm. She had a fourth heart sound, but no third heart sound. She had a grade 2/6 systolic murmur along the lower left sternal border without radiation. No diastolic murmurs are present. There is no midsystolic click. There is no precordial heave, lift or thrill. ABDOMEN: Soft and normally active without masses, organomegaly or bruits. EXTREMITIES: Showed 2+ edema of the ankles bilaterally. There was no hair growth on her feet and peripheral pulses were absent in the feet. DIAGNOSTIC DATA: I reviewed her electrocardiogram. It shows sinus rhythm with an old inferior wall myocardial infarction. She does have T-wave inversions in leads 3 and aVF. The inversion in 3 are more prominent than they were in February 2016. The T-wave inversions in aVF are new. No other changes are seen. LABORATORY DATA: Hemoglobin is 11.6, white count 8900, platelet count 239,000. INR 0.9. Sodium 144, potassium 4.3, BUN 25, creatinine 1.47, CK is 68, but MB is elevated at 8.1. Troponin is elevated to 0.801. ProBNP is elevated at 3939. IMPRESSION: 1. Probable acute non-ST elevation myocardial infarction. Since her total CK is normal, this may have occurred several days ago. The patient currently [place], [place] REPORT OF CONSULTATION [facility]: [id number] UNIT #: [id number] ROOM: 507 DOCTOR: ÁNGEL BIRMINGHAM MD BIRTHDATE: [birth year] denies any chest pain. 2. History of chronic obstructive pulmonary disease. 3. History of hypertension. 4. Probable widespread vascular disease. The patient does have a carotid endarterectomy scar and absent pedal pulses, suggesting central vascular and peripheral vascular disease. 5. History of hypertension. 6. History of hyperlipidemia. 7. Dementia. 8. Congestive heart failure with history of decreased ejection fraction. PLAN: For now, we will treat her conservatively. She has already been started on heparin. We will continue aspirin, statins, beta-blockers, nitrates and add clopidogrel. An echocardiogram will be obtained to reassess left ventricular function and wall motion. Given her multiple medical problems and dementia, I would avoid an invasive assessment of her cardiac status at this time, but strive to treat her to maintain good comfort. I thank the hospitalist group for asking our advice regarding her care. ÁNGEL BIRMINGHAM MD CM:CONSTR:REPORT OF CONSULTATION 1132 05/20/16 0116 interface
--- NOTE | ~2016-05-19 | PR ---
[place], [place] PROGRESS NOTE NAME: [facility] [id number] UNIT #: [id number] ROOM: 507 DOCTOR: ÁNGEL BIRMINGHAM MD BIRTHDATE: [birth year] DOS: 05/21/2016 CARDIOLOGY PROGRESS NOTE SUBJECTIVE: The patient was seen at her bedside with her sister in attendance today. Her sister is her power of insurance attorney. The patient does have dementia. She is becoming more agitated in the hospital. She denies any trouble with breathing or chest discomfort. She is still being treated for pneumonitis. PHYSICAL EXAMINATION: VITAL SIGNS: Today, her pulse is 90 and regular, blood pressure is 156/68. She is afebrile. She weighs 74.6 kilograms and has a body mass index of 25.8. NECK: Supple. She has no jugular distention. Carotids are full. She has no bruits. LUNGS: Respirations are unlabored. Her chest is clear to auscultation and percussion. She has no presacral edema or chest wall tenderness. HEART: Has a regular rhythm with a fourth heart sound. ABDOMEN: Benign. EXTREMITIES: Showed trace edema bilaterally. LABORATORY DATA: I reviewed her echocardiogram yesterday. It showed normal left ventricular size with mild concentric left ventricular hypertrophy. Overall, left ventricular systolic function was normal with an estimated ejection fraction of 55%. There was Doppler evidence for stage 1 left ventricular diastolic dysfunction. The aortic valve was difficult to see, but she does appear to have moderate aortic stenosis with a valve area of 0.9 cm2 and a mean transvalvular gradient of 10 mmHg. Dimensionless ratio was 0.43. I did take again review our options with the patient's sister who is her power of insurance attorney and she continues to agree with me that conservative therapy is best. From my perspective, she can be discharged whenever she is stable from a medical standpoint and we can follow her intermittently as an outpatient. Cardiology will sign off at this point, but we will be happy to see her at any time if needed. [place], [place] PROGRESS NOTE NAME: ADAN ZHANGR Marquise UNIT #: [id number] ROOM: 507 DOCTOR: ÁNGEL BIRMINGHAM MD BIRTHDATE: [birth year] ÁNGEL BIRMINGHAM MD CM:PNTRANS 07 7 ÁNGEL BIRMINGHAM MD 05/22/16307 interface
--- NOTE | ~2016-05-19 | EKG ---
[place], [place] ELECTROCARDIOGRAM [facility]PORT [id number] UNIT #: [id number] ROOM: 507 DOCTOR: ÁNGEL BIRMINGHAM MD BIRTHDATE: [birth year] DOS: 05/19/2016 TIME: 12:43 p.m. FINDINGS: Sinus rhythm at rate 87 with occasional premature atrial contraction, nonspecific intraventricular conduction defect, inferior wall myocardial infarction age undetermined. No acute ST elevation seen. ÁNGEL BIRMINGHAM MD CM:EKGRPT:ELECTROCARDIOGRAM REPORT [id number] ÁNGEL BIRMINGHAM MD
[~2016-05-19 07:32] MED LIST changes: +ASPIRIN325 MG PO
[2016-05-19 08:02] LABS: BASO % 0.2 % (0.0-1.0); EOS % 0.2 % (1.0-4.0); HEMATOCRIT 38.2 % (37.0-47.0); HEMOGLOBIN 11.6 g/dl (12.0-16.0); LYMPH # 0.7 10*3/uL (1.3-4.4); LYMPH % 7.6 % (27.0-41.0); MEAN CORPUSCULAR HGB 30.1 pg (27.0-31.0); MEAN CORPUSCULAR HGB CONC 30.4 g/dl (33.0-37.0); MEAN PLATELET VOLUME 10.3 fl (9.6-12.3); MONO # 0.3 10*3/uL (0.1-1.0); MONO % 3.4 % (3.0-9.0); NEUT # 7.9 10*3/uL (2.3-7.9); NEUT % 88.3 % (47.0-73.0); PLATELET COUNT AUTOMATED 239 10*3/uL (130-400); RED BLOOD COUNT 3.86 10*6/uL (4.10-5.10); RED CELL DISTRI WIDTH 14.5 % (0-14.5); WHITE BLOOD COUNT 8.9 10*3/uL (4.8-10.8)
[2016-05-19 08:09] LABS: INTERNATIONAL NORM RATIO 0.9 (2.0-3.5)
[2016-05-19 08:17] LABS: ALBUMIN 2.8 gm/dl (3.1-4.5); BILIRUBIN, TOTAL 0.5 mg/dl (0.2-1.0); C-REACTIVE PROTEIN 5.88 MG/DL (0-0.3); MAGNESIUM 2.5 mg/dL (1.5-2.1); POTASSIUM 4.3 mmol/L (3.5-5.1); TOTAL PROTEIN 7.2 gm/dL (6.4-8.2)
[2016-05-19 08:22] LABS: CKMB 8.1 ng/ml (0.5-3.6); TROPONIN I 0.801 ng/ml (<0.045)
[2016-05-19] MEDS ORDERED: ALPRAZOLAM0.25 M2 PO (08:58)
[2016-05-19] MEDS ORDERED: CLARITIN10 MG PO (08:58)
[2016-05-19] MEDS ORDERED: GOOD SENSE ASP325 MG PO (08:58)
[2016-05-19] MEDS ORDERED: COREG6.25 MG PO (08:59)
[2016-05-19] MEDS ORDERED: FLONASE ALLERG9.9 ML NAS (08:59)
[2016-05-19] MEDS ORDERED: Lasix80 MG PO (09:00)
[2016-05-19] MEDS ORDERED: LIPITOR20 MG PO (09:00)
[2016-05-19] MEDS ORDERED: GLUCAGON EMERGEN1 M1 IJ (09:00)
[2016-05-19] MEDS ORDERED: KLOR-CON M2020 ME1 PO (09:00)
[2016-05-19] MEDS ORDERED: NOVOLOG10 ML SQ (09:01)
[2016-05-19] MEDS ORDERED: OMEPRAZOLE40 MG PO (09:01)
[2016-05-19] MEDS ORDERED: NORVASC10 MG PO (09:01)
[2016-05-19] MEDS ORDERED: TYLENOL325 M2 PO (09:02)
[2016-05-19] MEDS ORDERED: SEROQUEL25 MG PO (09:02)
[2016-05-19] MEDS ORDERED: SYMBICORT1 AE1 INH (09:02)
[2016-05-19] MEDS ORDERED: VENTOLIN H0.09 MG/AC INH (09:03)
[2016-05-19] MEDS ORDERED: VITAMIN D3400 UNIT PO (09:03)
[2016-05-19] MEDS ORDERED: ZOFRAN4 MG PO (09:04)
[2016-05-19 12:30] LABS: TROPONIN I 3.83 ng/ml (<0.045)
[2016-05-19 18:28] LABS: CKMB 22.5 ng/ml (0.5-3.6)
[2016-05-19 18:30] LABS: TROPONIN I 4.9 ng/ml (<0.045)
[2016-05-20] VITALS (7 sets, daily range): BP systolic 97–140; BP diastolic 42–66
[2016-05-20 00:53] LABS: TROPONIN I 4.31 ng/ml (<0.045)
[2016-05-20 05:58] LABS: MEAN CELL VOLUME 98.1 fl (81.0-99.0); MEAN CORPUSCULAR HGB CONC 30.6 g/dl (33.0-37.0); MEAN PLATELET VOLUME 10.7 fl (9.6-12.3); PLATELET COUNT AUTOMATED 195 10*3/uL (130-400); RED CELL DISTRI WIDTH 13.9 % (0-14.5); WHITE BLOOD COUNT 6.1 10*3/uL (4.8-10.8)
[2016-05-20 06:06] LABS: POTASSIUM 4.1 mmol/L (3.5-5.1)
[2016-05-20 06:08] LABS: HEMATOCRIT 30.4 % (37.0-47.0); HEMOGLOBIN 9.3 g/dl (12.0-16.0)
[2016-05-20 06:13] LABS: FREE T4 1.09 ng/dl (0.76-1.46); THYROID STIM HORMONE (HS) 0.447 uIU/ml (0.358-4.75)
[2016-05-20 06:20] LABS: PROTHROMBIN TIME 10.5 SECONDS (9.0-12.4)
[2016-05-20 06:49] LABS: FOLIC ACID 11.21 ng/mL (>5.38)
[2016-05-20 07:35] LABS: LYMPHOCYTE # 0.4 10*3/uL (1.3-4.4); MONOCYTE # 0.1 10*3/uL (0.1-1.0); NEUTROPHIL # 5.6 10*3/uL (2.3-7.9); NEUTROPHILS 92 % (47-73); PLATELET SUFFICIENCY NORMAL (NORMAL); TOTAL CELLS COUNTED 100 #CELLS
[2016-05-21] VITALS: BP 134/64
[2016-05-21 06:28] LABS: HEMATOCRIT 34.2 % (37.0-47.0); HEMOGLOBIN 10.5 g/dl (12.0-16.0); IG # 0.1 10*3/uL (0.0-0.1); LYMPH # 0.6 10*3/uL (1.3-4.4); LYMPH % 7.5 % (27.0-41.0); MEAN CORPUSCULAR HGB 30.1 pg (27.0-31.0); MEAN CORPUSCULAR HGB CONC 30.7 g/dl (33.0-37.0); MEAN PLATELET VOLUME 9.6 fl (9.6-12.3); MONO # 0.2 10*3/uL (0.1-1.0); MONO % 2.6 % (3.0-9.0); NEUT # 6.9 10*3/uL (2.3-7.9); NEUT % 89.1 % (47.0-73.0); PLATELET COUNT AUTOMATED 240 10*3/uL (130-400); RED BLOOD COUNT 3.49 10*6/uL (4.10-5.10); RED CELL DISTRI WIDTH 13.9 % (0-14.5); WHITE BLOOD COUNT 7.7 10*3/uL (4.8-10.8)
[2016-05-21 06:59] LABS: POTASSIUM 4.2 mmol/L (3.5-5.1)
[2016-05-21 08:00] VITALS: BP 156/68
[2016-05-21 12:00] VITALS: BP 123/67
[2016-05-21 15:55] VITALS: BP 103/51
[2016-05-21 20:07] VITALS: BP 105/54
[2016-05-22] VITALS: BP 132/77
[2016-05-22 07:00] LABS: BASO % 0.2 % (0.0-1.0); HEMATOCRIT 34.8 % (37.0-47.0); HEMOGLOBIN 10.8 g/dl (12.0-16.0); IG # 0.1 10*3/uL (0.0-0.1); LYMPH # 0.6 10*3/uL (1.3-4.4); LYMPH % 10.3 % (27.0-41.0); MEAN CELL VOLUME 97.5 fl (81.0-99.0); MEAN CORPUSCULAR HGB 30.3 pg (27.0-31.0); MEAN PLATELET VOLUME 9.7 fl (9.6-12.3); MONO # 0.5 10*3/uL (0.1-1.0); MONO % 8.1 % (3.0-9.0); NEUT # 4.9 10*3/uL (2.3-7.9); NEUT % 80.6 % (47.0-73.0); PLATELET COUNT AUTOMATED 226 10*3/uL (130-400); RED BLOOD COUNT 3.57 10*6/uL (4.10-5.10); RED CELL DISTRI WIDTH 13.9 % (0-14.5)
[2016-05-22 08:00] VITALS: BP 162/74
[2016-05-22] MEDS ORDERED: ASPIRIN ADULT L81 M2 PO (14:53)
[2016-05-22] MEDS ORDERED: PREDNISONE20 M1 PO (14:53)
[2016-05-22] MEDS ORDERED: DIVALPROEX SOD500 MG PO (14:53)
[2016-05-22] MEDS ORDERED: IMDUR SA30 MG PO (14:53)
[2016-05-22] MEDS ORDERED: CLOPIDOGREL75 MG PO (14:53)
[2016-05-22] MEDS ORDERED: LEVAQUIN500 M2 PO (14:53)
[2016-05-22] MEDS ORDERED: DIVALPROEX SOD250 MG PO (14:53)
[2016-05-22] MEDS ORDERED: COREG12.5 M1 PO (14:53)
[2016-05-22 15:54] VITALS: BP 112/44
[2016-05-22 19:11] LABS: BILIRUBIN NEGATIVE (NEGATIVE); BLOOD NEGATIVE (NEGATIVE); CLARITY CLEAR (CLEAR); COLOR YELLOW (YELLOW); GLUCOSE NEGATIVE (NEGATIVE); KETONE NEGATIVE (NEGATIVE); LEUKO ESTERASE NEGATIVE (NEGATIVE); NITRITE NEGATIVE (NEGATIVE); PH 5.5 (5.0-9.0); PROTEIN NEGATIVE (NEGATIVE); UROBILINOGEN 0.2 E.U./dl (0.2-1.0)
[2016-05-22 19:22] LABS: BACTERIA TRACE; RBC 0-2 rbc/hpf (0-2); WBC 0-2 wbc/hpf (0-5)
== END 2016-05-22 19:46 | DRG 871 ==
LOC: ED 07:32 → 5E 08:40 → EDHOLD 08:40 → 5E 08:49
PROVIDERS: Emergency Medicine; Internal Medicine
DX: A41.9 Sepsis, unspecified organism (principal); N17.0 Acute kidney failure with tubular necrosis; I21.4 Non-ST elevation (NSTEMI) myocardial infarction; E43 Unspecified severe protein-calorie malnutrition; G93.40 Encephalopathy, unspecified; J96.11 Chronic respiratory failure with hypoxia; I13.0 Hypertensive heart and chronic kidney disease with heart failure and stage 1 through stage 4 chronic kidney disease, or unspecified chronic kidney disease; J18.9 Pneumonia, unspecified organism; J44.0 Chronic obstructive pulmonary disease with (acute) lower respiratory infection; I50.30 Unspecified diastolic (congestive) heart failure; J44.1 Chronic obstructive pulmonary disease with (acute) exacerbation; I50.22 Chronic systolic (congestive) heart failure; R65.20 Severe sepsis without septic shock; E83.41 Hypermagnesemia; E78.5 Hyperlipidemia, unspecified; F02.80 Dementia in other diseases classified elsewhere, unspecified severity, without behavioral disturbance, psychotic disturbance, mood disturbance, and anxiety; F41.9 Anxiety disorder, unspecified; N18.3 Chronic kidney disease, stage 3 (moderate); D64.9 Anemia, unspecified; F63.9 Impulse disorder, unspecified; G30.9 Alzheimer's disease, unspecified; Z87.891 Personal history of nicotine dependence; Z82.49 Family history of ischemic heart disease and other diseases of the circulatory system; Z88.8 Allergy status to other drugs, medicaments and biological substances; Z91.040 Latex allergy status; Z79.82 Long term (current) use of aspirin; Z79.4 Long term (current) use of insulin; Z79.899 Other long term (current) drug therapy; Z88.1 Allergy status to other antibiotic agents; Z86.14 Personal history of Methicillin resistant Staphylococcus aureus infection; Z68.27 Body mass index [BMI] 27.0-27.9, adult